=== PATIENT | male | born 1945 | race Caucasian/White ===

== ENCOUNTER 2019-02-03 15:09 | Observation (INO) | payer OTHER ==
[~2019-02-03 15:09] MED LIST: ISOVUE-370 76%-LOCM 1 ML ONE
--- NOTE | 2019-02-03 15:41 | RAD ---
XR Chest 1 View Portable HISTORY: Dyspnea, hypotension COMPARISON: None FINDINGS : The heart size is normal. There are emphysematous changes in the lung perkins bilaterally. No lobar consolidation, pneumothoraces or large effusions are seen. There is a questionable mild infiltrate in the right infrahilar lung.
[2019-02-03 16:13] LABS: #Lymphocytes 0.9 thou/uL (1.20-3.40); #Monocytes 0.8 thou/uL (0.11-0.59); #Neutrophils 9.7 thou/uL (1.40-6.50); %Basophils 0.3 % (0.0-1.0); %Eosinophils 0.3 % (0.0-10.0); %Monocytes 7.1 % (0.0-10.0); %Neutrophils 84.4 % (42.0-75.0); Mean Corpuscular HGB CONC 33.1 g/dL (32.0-36.0); Mean Corpuscular Volume 87.6 fL (78.0-98.0); Mean Platelet Volume 7.1 fL (7.4-10.4); Platelet Count 416 thou/uL (130-400); RBC Distribution Width 13.2 % (11.5-14.5); Red Blood Cell (RBC) Count 4.85 mill/uL (4.70-6.10); White Blood Cell (WBC) Count 11.5 thou/uL (4.8-10.8)
[2019-02-03 16:16] LABS: Base Excess-Venous 3.1 mmol/L (-2.0 to 3.0); Bicarbonate (HCO3v) 29.5 mmol/L (22.0-28.0); CO2 Tension (PvCO2) 50.8 mmHg (40.0-50.0); Calcium, Ionized 1.07 mmol/L (See Comments:); Chloride 95 mmol/L (98-107); Hemoglobin - Calc 14.9 g/dL (14.0-18.0); Potassium 4.1 mmol/L (3.5-5.1); Sodium 131 mmol/L (138-145); T. Carbon Dioxide 31.1 mmol/L (22.0-28.0); vO2 Saturation-calc 70.8 % (60.0-85.0)
[2019-02-03 16:33] LABS: ALT (SGPT) 10 U/L (8-55); AST (SGOT) 18 U/L (5-34); Albumin 4.1 g/dL (3.4-4.8); Alkaline Phosphatase 183 U/L (40-150); Anion Gap 15 mmol/L (10-20); BUN (Urea Nitrogen) 24 mg/dL (8.4-25.7); Calc. Creatinine Clearance 0 mL/min (70-130); Calcium 10.2 mg/dL (7.8-10.44); Carbon Dioxide 30 mmol/L (23-31); Chloride 93 mmol/L (98-107); Estimated GFR-MDRD 56; Globulin 2.8 g/dL (2.4-3.5); Glucose 90 mg/dL (83-110); Potassium 4.2 mmol/L (3.5-5.1); Protein, Total 6.9 g/dL (5.8-8.1); Sodium 134 mmol/L (136-145)
[2019-02-03 16:45] LABS: Bilirubin Negative (Negative); Blood, Urine Negative (Negative); Clarity Clear (Clear); Glucose, Urine (Dipstick) Normal (Negative); Leukocyte Negative Leu/uL (Negative); Nitrite Negative (Negative); Protein, Urine (Dipstick) Negative (Neg-Trace); Urobilinogen Normal mg/dL (Less than 2)
--- NOTE | 2019-02-03 17:08 | CT ---
CT arteriogram chest with IV contrast and 3-D imaging HISTORY: Chest pain. Dyspnea. FINDINGS: There is good contrast opacification pulmonary arteries and thoracic aorta. Normal branchin g great vessels at the aortic arch. Arterial calcification. Large spiculated mass at the right hilum significantly narrows the lower lobe bronchi. Mass is estima julian at 4.2 cm greatest oblique diameter on the axial images. More peripherally within the right lower lobe is a spiculated 3.2 cm mass. Lungs are otherwise hyperinflated. Calcified granulomata are consistent with healed granulomatous dis ease. Lymph nodes within the mediastinum are not pathologically enlarged. Multiple lytic masses are present throughout the thoracic spine and sternum. There is posterior break through of the largest sternal mass. Multiple lobular hyperdense and hypodense masses are present throughout each liver lobe. The largest is at the posterior aspect of the right liver lobe, measuring up to 4.7 cm. IMPRESSION: No CT evidence of pulmonary embolus. Large right lung masses. Metastatic disease of the bones and liver. Please consider pulmonary medicine evaluation for potential bronchoscopy. Liver masses could be sampl ed percutaneously with image guidance if needed.
[2019-02-03] MEDS ORDERED: Mag-Al 1200 mg/1200 mg/30 ML UDCUP ONE (17:39)
[2019-02-03] MEDS ORDERED: Lidocaine Viscous Sol 2% 15 ml UD Cup ONE (17:39)
[2019-02-03] MEDS ORDERED: Ketorolac Tromethamine 30 MG/ML VIAL ONE (19:07)
[2019-02-03 22:18] VITALS: BMI 18.8
[2019-02-03] MEDS: Sodium Chloride 0.9% 1,000 ML IV SCH (23:11)
--- NOTE | 2019-02-04 03:10 | HP ---
CHIEF COMPLAINT: Hypotension. HISTORY OF PRESENT ILLNESS: This patient is a 73-year-old male, who reports that for several months he has had constellation of symptoms that includes significant decrease in his appetite with an associated 35 pounds weight loss, dizziness with standing and walking, tachycardia with standing and walking, and some general lightheadedness. He is also reporting some back pain. The patient reports he rides the "chain bus" to [facility] to manage his glaucoma and that has caused him some episodes of fairly severe sharp pain in the back and right rib area. The patient reports he has visual difficulties, uses a cane and has been generally weak and lightheaded that he is having to hold onto the berger anytime he goes anywhere. Today, apparently, he was seen at the [facility] and noted to be significantly hypotensive. He was transferred to this facility and initially noted to be somewhat tachycardic, although mildly so. He had orthostatic vital signs that were positive, although I cannot find the details of that specifically documented within the record. In the emergency department, the patient apparently had some GI symptoms as well, received Toradol and a GI cocktail with improvement. Currently, the patient is generally comfortable in the ER [facility]. REVIEW OF SYSTEMS: The patient does report he said normal bowel and bladder habits, although he does have some nocturia. All other systems reviewed, all pertinent positives and negatives noted in the history of present illness. Specifically, denies current chest pain or fevers or chills. PAST MEDICAL HISTORY: Notable for hypertension, hyperlipidemia, hypothyroidism, glaucoma. Reports "minor stroke" in 2004 with some facial droop that resolved within a few days. He also had an episode of anemia evaluated at [facility], which involved endoscopy with no findings. PAST SURGICAL HISTORY: Hydrocele, appendectomy, right hand surgery. FAMILY HISTORY: Father with coronary disease at 90. His mother at 86 after suffering a fall and being placed in a [facility]. He had a brother, who had diabetes and of myocardial infarction. SOCIAL HISTORY: The patient was a heavy smoker indicating he started it at 8 years of age and quit about 10 years ago. Denies alcohol or drugs. He is a full code. ALLERGIES: NONE. MEDICATIONS: 1. Aspirin 81 mg daily. 2. Atorvastatin 40 mg daily. 3. Latanoprost 0.005% drops, 1 drop both eyes daily. 4. Levothyroxine 100 mcg daily. 5. Lisinopril 20 mg daily. 6. Metoprolol 50 mg b.i.d. 7. Minocycline 100 mg b.i.d. 8. Prednisolone 1% eye suspension, dosing regimen not known. 9. Hydrochlorothiazide 25 mg p.o. daily. PHYSICAL EXAMINATION: VITAL SIGNS: Most recent set of vital signs in the ER, BP 120/76, pulse 88, respirations 16, O2 saturation 96% on room air. GENERAL APPEARANCE: Age-appropriate male, in no distress. He is awake. HEENT: PERRL. No OP lesions. NECK: Supple and symmetric. No lymphadenopathy, JVD, or bruits. HEART: Regular rate and rhythm without murmurs, gallops, or rubs. LUNGS: Clear to auscultation bilaterally with good chest wall expansion and air exchange. ABDOMEN: Soft, nontender, and nondistended. Positive bowel sounds. No masses. No organomegaly. EXTREMITIES: No cyanosis, clubbing, or edema. PSYCH: Normal affect and behavior. NEURO: The patient appears to have normal spontaneous movement in all extremities with normal strength throughout. No focal deficits. LABORATORY DATA: White count 11.5, hemoglobin 14, platelets 416. Sodium 134, potassium 4.2, chloride 93, CO2 is 30, BUN 24, creatinine 1.26, glucose 90, lactic acid 1.7, calcium 10.4, AST 18, ALT 10, alkaline phosphatase 183. Urinalysis negative. IMAGING: Chest x-ray shows normal heart size, emphysematous changes in the lungs bilaterally, questionable mild infiltrate in the right infrahilar lung. CTA of the chest shows large right lung masses with metastatic disease to the liver and to the bone. There are mets throughout the thoracic spine and sternum with posterior breakthrough of largest sternal mass. There is a spiculated mass at the right hilum, significantly narrowing lower lobe bronchus or bronchi masses of 4.2 cm, and a lower lobe spiculated mass that is 3.2 cm. IMPRESSION AND PLAN: 1. New diagnosis of neoplasm within the lung with metastatic disease in the spine and skeletal system and liver. This is most likely lung cancer. Given this patient's history, this will need to be worked up and/or treated at [facility]. 2. Hypotension. The patient apparently has some orthostatic hypotension that was directly reported to me by the ER provider, but I do not see that documented currently. He indicated there was over 30 point drop in the systolic blood pressure along with a tachycardic response. The patient has received a liter of fluid. We will continue to hydrate overnight in observation status. Recheck his orthostatics in the morning. We will hold off on his blood pressure medicines for now as he is able to adequately hydrate and overcome the symptoms, should be able to discharge back to his unit to have outpatient followup at [facility]. If he fails to improve with that, he may need some medication in order to help maintain the blood pressure. In either circumstance, he will likely be a short stay to have followup at [facility]. 3. History of hypertension. Again, holding his blood pressure medications because of his orthostasis. 4. Hypothyroidism. We will check a TSH in the morning to ensure it is noncontributory. Job ID: [id number]
[2019-02-04 05:22] LABS: #Eosinphils 0.1 thou/uL (0.0-0.7); #Lymphocytes 1.1 thou/uL (1.20-3.40); #Monocytes 0.9 thou/uL (0.11-0.59); #Neutrophils 7.8 thou/uL (1.40-6.50); %Basophils 0.2 % (0.0-1.0); %Eosinophils 0.5 % (0.0-10.0); %Monocytes 8.7 % (0.0-10.0); %Neutrophils 79.6 % (42.0-75.0); Hemoglobin 12.4 g/dL (14.0-18.0); Mean Corpuscular HGB CONC 33.7 g/dL (32.0-36.0); Mean Corpuscular Hemoglobin 29.3 pg (27.0-31.0); Mean Platelet Volume 7.3 fL (7.4-10.4); Platelet Count 348 thou/uL (130-400); RBC Distribution Width 13.2 % (11.5-14.5); Red Blood Cell (RBC) Count 4.24 mill/uL (4.70-6.10); White Blood Cell (WBC) Count 9.8 thou/uL (4.8-10.8)
[2019-02-04 05:44] LABS: Anion Gap 12 mmol/L (10-20); BUN (Urea Nitrogen) 19 mg/dL (8.4-25.7); Calc. Creatinine Clearance 65 mL/min (70-130); Calcium 9.1 mg/dL (7.8-10.44); Carbon Dioxide 25 mmol/L (23-31); Chloride 99 mmol/L (98-107); Estimated GFR-MDRD 80; Glucose 74 mg/dL (83-110); Potassium 3.5 mmol/L (3.5-5.1); Sodium 132 mmol/L (136-145)
[2019-02-04] MEDS: Sodium Chloride 0.9% 1,000 ML IV SCH ×3 (13:01→19:42)
[2019-02-04] MEDS: traMADol HCl 50 MG TAB PO PRN (13:28)
[2019-02-04] MEDS ORDERED: Calcium Carbonate 500 MG ChewTAB PO PRN (16:22)
[2019-02-04] MEDS ORDERED: Ondansetron ODT 4 MG TAB SL PRN (21:48)
--- NOTE | 2019-02-04 21:49 | PRG ---
DATE OF SERVICE: 02/04/2019 SUBJECTIVE: Mr. Corral is a 73-year-old male with past medical history significant for prior CVA, hypertension, hyperlipidemia, hypothyroidism, who presented to the hospital with complaints of symptomatic hypotension from his [facility] where he is currently incarcerated. The patient continues to complain of dizziness on standing. He denies any chest pain. He complains of general fatigue. He states that his appetite is better. He is somewhat emotional regarding his newly diagnosed metastatic lung cancer. He has no other complaints at this time. OBJECTIVE: VITAL SIGNS: Sitting blood pressure 111/64, standing blood pressure 80/51 with pulse in the 130s, supine blood pressure is 103/61. GENERAL: The patient is a thin elderly male, resting comfortably in no acute distress. HEENT: Head is atraumatic and normocephalic. Mucous membranes moist. NECK: Trachea is midline. No appreciable JVD. No carotid bruit. CV: S1 and S2. Regular rate and rhythm. No appreciable murmurs, rubs, or gallops. LUNGS: Regular respiratory rate and pattern, overall clear to auscultation bilaterally. ABDOMEN: Soft, positive bowel sounds. EXTREMITIES: No edema. SKI: Warm and dry. NEUROLOGIC: Cranial nerves 2 through 12 are grossly intact. The patient is nonfocal. LABORATORY DATA: WBC 9.5, hemoglobin 12.4, hematocrit 36.9, platelets 348. Urinalysis is negative. TSH 1.2933. ASSESSMENT: 1. Symptomatic orthostatic hypotension, despite IV fluid resuscitation, the patient still appears to be dehydrated and symptomatically orthostatic. 2. Newly diagnosed metastatic lung cancer with metastases to the spine, skeletal system and liver. 3. Prior cerebrovascular accident. 4. Hypothyroidism. PLAN: At this time, we will need to continue fairly aggressive IV fluid resuscitation, and we will recheck orthostatics in the morning. I also believe that likely given his recent unintentional weight loss, he is over titrated on his blood pressure medications and we will need to reassess these and reinstate them accordingly after his blood pressure recovers. The patient has had a poor oral intake and has been dehydrated. Regarding his lung cancer, I have explained the likely diagnoses and findings of the CT. He will follow up with Oncology at [facility]. Expect discharge tomorrow after further IV fluid resuscitation. Job ID: [id number]
[2019-02-05] MEDS: Sodium Chloride 0.9% 1,000 ML IV SCH ×3 (05:50→13:38)
[2019-02-05] MEDS: traMADol HCl 50 MG TAB PO PRN (08:39)
[2019-02-05] MEDS ORDERED: Atorvastatin Calcium 40 MG TAB PO SCH (09:00)
[2019-02-05] MEDS ORDERED: Aspirin 81 mg Enteric Coated Tablet PO SCH (09:00)
[2019-02-05] MEDS ORDERED: Levothyroxine Sodium 100 MCG TAB PO SCH (09:00)
[2019-02-05 13:25] VITALS: BP 151/76; TEMP 98.5
--- NOTE | 2019-02-05 20:12 | DIS ---
DATE OF ADMISSION: 02/03/2019 DATE OF DISCHARGE: 02/05/2019 CHIEF COMPLAINT: Hypotension. DISCHARGE DIAGNOSES: 1. Orthostatic hypotension/dehydration, resolved after IV fluid resuscitation. 2. Newly diagnosed metastatic lung cancer with metastases to the spine, skeletal system, and liver; prior cerebrovascular accident. 3. Hypothyroidism. 4. History of essential hypertension. BRIEF HOSPITAL COURSE: Mr. Corral is a 73-year-old male with past medical history significant for prior CVA, hypertension, hyperlipidemia, hypothyroidism, and tobacco abuse, who presented to the hospital with complaints of symptomatic hypotension from his [facility], where he is currently incarcerated. The patient was admitted for IV fluid resuscitation and observation. He did undergo a chest x-ray, which showed a questionable mild infiltrate in the right infrahilar lung. This was further investigated with a CTA of the chest, which showed no CT evidence of pulmonary embolism, but there were large right lung masses, along with metastatic disease of the bones and liver. The patient required almost 2 days of IV fluid resuscitation before his vital signs stabilized. He is no longer dizzy with ambulation, and his initial tachycardia has trended down nicely into the 80s. He is no longer orthostatic. He continues to have some complaints of back pain, which I suspect is secondary to his metastatic cancer. Otherwise, he has no complaints today. He has no chest pain or shortness of breath. He has ambulated to the bathroom back and forth without issue. DISCHARGE CONDITION: Stable. DISCHARGE DISPOSITION: Shelter. DISCHARGE INSTRUCTIONS AND FOLLOWUP: The patient has had unintentional weight loss of 35 pounds or more in the last several months, and I believe that essentially he has also been overmedicated on his antihypertensive. Initially, the patient had been taking metoprolol 50 mg p.o. b.i.d., and I have decreased this to 12.5 mg p.o. b.i.d. Initially, he was on lisinopril dose of 20 mg daily, which I have titrated down to 2.5. Otherwise, he will continue his home medications of aspirin, statin, and levothyroxine. I have stopped his diuretic, which was hydrochlorothiazide 25 mg daily. I have personally [facility] the [facility], and the patient will be set up for an outpatient Oncology visit for further workup and treatment of his newly diagnosed lung carcinoma. He will need bronchoscopy, biopsy, and management by Oncology eventually, if no surgery is warranted. The [facility] will be discharged to [facility] in stable condition today. Job ID: [id number]
== END 2019-02-05 14:07 ==
LOC: ERS 15:09 → 2SW 21:15 → EEVIPCON 21:15
PROVIDERS: ADMIT Internal Medicine; ATTEND Internal Medicine
DX: I95.1 Orthostatic hypotension (principal); C34.91 Malignant neoplasm of unspecified part of right bronchus or lung; C78.7 Secondary malignant neoplasm of liver and intrahepatic bile duct; C79.51 Secondary malignant neoplasm of bone; E03.9 Hypothyroidism, unspecified; I10 Essential (primary) hypertension; E78.5 Hyperlipidemia, unspecified; H40.9 Unspecified glaucoma; Z79.82 Long term (current) use of aspirin; Z79.899 Other long term (current) drug therapy; Z87.891 Personal history of nicotine dependence; Z86.73 Personal history of transient ischemic attack (TIA), and cerebral infarction without residual deficits
CPT/HCPCS: 36415; 71045; 71275; 80048; 80053; 81003; 82330; 82803; 83605; 84443; 84484; 85025; 87040; 87086; 93005; 96361; 96374; G0378; J1885; Q0162; Q9966